=== PATIENT | male | born 1960 | race Caucasian/White ===

== ENCOUNTER 2016-09-13 15:47 | Inpatient (IN) | payer SELFPAY ==
[~2016-09-13] VITALS: Ht 165.1 cm; Wt 75.5 kg
--- NOTE | ~2016-09-13 | EC ---
PATIENT:MEAGAN HURTADO DATE OF SERVICE: 09/13/16 SEX: M MEDICAL RECORD: [id number] DATE OF : 56 LOCATION:[facility] AGE OF PATIENT: 56 ADMISSION DATE: 09/13/16 REFERRING PHYSICIAN: INTERPRETING PHYSICIAN: KARENA HIGH MD ECHOCARDIOGRAM REPORT ECHO CHARGES 4 ECHO COMPLETE CLINICAL DIAGNOSIS: FEVER OF UNKNOWN ORGIN ECHOCARDIOGRAPHIC MEASUREMENTS (adult normal given) AC root (d.<3.7cm) 3.6 cm LV Septum d (<1.2 cm> 1.1 cm Valve Excursion 1.8 cm LV Septum (systole) 1.4 cm Left Atria (s.<4.0cm> 3.7 cm LVPW d(<1.2cm) 1.4 cm RV (d.<2.3cm) 5.3 cm LVPW (sytole) 1.8 cm LV diastole(<5.6CM) 5.5 cm MV E-F(>70mm/sec) cm LV systole 4.1 cm LVOT Diameter 2.0 cm MV exc.(>10mm) 2.2 cm Est.ejection fraction (50-75%) % Pericardial Effusion N DOPPLER: LVIT cm/sec A 83.0 cm/sec E 59.0 cm/sec LA cm/sec RVSP 27 mmHg LVOT 88 cm/sec AOP1/2T 415 m/s Asc. Ao 152 cm/sec RVOT 75 cm/sec RA cm/sec PA 102 cm/sec AV Gradient Peak 9.20 mmHg AV Mean 4.71 mmHg AV Area 1.8 cm MV Gradient Peak 2.37 mmHg MV Mean 1.17 mmHg MV Area cm COMMENTS: Client Relations Specialist: Suhas LOZANO Residential Tech: 1 Dr. High TAPE# PACS DATE OF SERVICE: 09/17/2016 Echocardiogram FINDINGS: 1. Left ventricular chamber size is within normal limits. Left ventricular systolic function is normal. Overall ejection fraction estimated at 50%. 2. Left atrium is within normal limits at 3.7 cm, right atrium and right ventricular chamber sizes are mildly dilated. 3. Valvular structures have normal structure and motion. ECHOCARDIOGRAM REPORT [id number] MEAGAN HURTADO 4. Doppler interrogation reveals mild aortic insufficiency, mild mitral regurgitation, mild tricuspid regurgitation, no other valvular insufficiency or stenosis and pulmonary systolic pressure is normal estimated at 27 mmHg. 5. No evidence of pericardial effusion or left ventricular thrombus. 6. No evidence of vegetative endocarditis. TRANSINT:[id number] Voice Confirmation ID: [id number] DOCUMENT ID: [id number] KARENA HIGH MD CC: [id number] DICTATION DATE: 09/17/16 1248 JEWELRY FINISHER: 09/17/16 1737 ADM IN [facility] [address] [id number]
[2016-09-13 16:20] LABS: BASOPHILS 0.3 % (0-2); EOSINOPHILS 0 % (0-7); HEMATOCRIT 35.1 % (42.0-54.0); HEMOGLOBIN 11.9 g/dL (13.5-17.5); IMMATURE GRANULOCYTES 0.4 % (0-5); LYMPHOCYTES 20.4 % (15-50); MCH 27.9 pg (26.0-34.0); MCHC 33.9 g/dL (31.0-37.0); MCV 82.4 fL (80.0-100.0); MONOCYTES 11.7 % (2-11); NEUTROPHILS 67.2 % (40-80); PLATELET COUNT 207 10x3/uL (130-400); RBC 4.26 10x6/uL (4.20-6.10); RDW 18.5 % (11.5-14.5)
[2016-09-13 16:34] LABS: ALBUMIN 2.9 g/dL (3.4-5.0); ALKALINE PHOSPHATASE 107 U/L (46-116); ALT (SGPT) 84 U/L (10-68); AMYLASE - SERUM 68 U/L (25-115); BILIRUBIN - TOTAL 0.89 mg/dL (0.2-1.3); CALC OSMOLALITY 258 mosm/kg (275-300); CARBON DIOXIDE 26.5 mmol/L (21.0-32.0); CHLORIDE - SERUM 93 mmol/L (98-107); CREATININE - SERUM 0.9 mg/dL (0.6-1.3); GLUCOSE 116 mg/dL (74-106); LIPASE 260 U/L (73-393); POTASSIUM - SERUM 3.6 mmol/L (3.5-5.1); PROTEIN - SERUM 7.8 g/dL (6.4-8.2); SODIUM 129 mmol/L (136-145); UREA NITROGEN 9 mg/dL (7-18); eGFR NON AFRICAN AMERICAN > 90 mL/min (90-120)
[2016-09-13 18:12] LABS: APPEARANCE CLEAR (CLEAR); BILIRUBIN NEGATIVE (NEGATIVE); COLOR YELLOW (YELLOW); GLUCOSE NEGATIVE (NEGATIVE); KETONE NEGATIVE (NEGATIVE); LEUKOCYTE ESTERASE NEGATIVE (NEGATIVE); NITRITE NEGATIVE (NEGATIVE); PROTEIN TRACE mg/dL (NEGATIVE); UROBILINOGEN NORMAL (NORMAL)
[2016-09-13 21:26] VITALS: BMI 28.3
[2016-09-13] MEDS ORDERED: ZOFRAN ODT4 MG/UDTAB SL (21:38)
--- NOTE | 2016-09-13 23:36 | NUR ---
WOKE PATIENT UP TO GIVE HIM THE LIBRIUM THAT IS SCHEDULED. PATIENT IS VERY PLEASENT. NO SIGNS OF ALCOHOL WITHDRAW. PATIENT DENIES NEEDS AT THIS TIME. IS IN RECLINER. BOTH DENY NEEDS.
[2016-09-14] VITALS (14 sets, daily range): BP systolic 110–144; BP diastolic 62–714; Ht 165.1 cm; Wt 75.5 kg
--- NOTE | 2016-09-14 03:59 | NUR ---
PUT A COLD WET WASH CLOTH ON PATIENT'S FOREHEAD AND UNDER EACH ARM.
[2016-09-14 05:00] LABS: BASOPHILS 0.5 % (0-2); EOSINOPHILS 0 % (0-7); HEMATOCRIT 32.2 % (42.0-54.0); HEMOGLOBIN 10.8 g/dL (13.5-17.5); IMMATURE GRANULOCYTES 0.5 % (0-5); LYMPHOCYTES 18.4 % (15-50); MCH 27.8 pg (26.0-34.0); MCHC 33.5 g/dL (31.0-37.0); MEAN PLATELET VOLUME 9.7 fL (7.4-10.4); MONOCYTES 11.9 % (2-11); NEUTROPHILS 68.7 % (40-80); PLATELET COUNT 203 10x3/uL (130-400); RBC 3.88 10x6/uL (4.20-6.10); RDW 18.5 % (11.5-14.5); WBC 6.2 10x3/uL (4.8-10.8)
[2016-09-14 05:15] LABS: CALC OSMOLALITY 258 mosm/kg (275-300); CALCIUM 7.6 mg/dL (8.5-10.1); CARBON DIOXIDE 23.9 mmol/L (21.0-32.0); CHLORIDE - SERUM 97 mmol/L (98-107); GLUCOSE 118 mg/dL (74-106); POTASSIUM - SERUM 3.5 mmol/L (3.5-5.1); SODIUM 129 mmol/L (136-145); UREA NITROGEN 9 mg/dL (7-18); eGFR NON AFRICAN AMERICAN 81 mL/min (90-120)
--- NOTE | 2016-09-14 07:00 | NUR ---
PT SLEEPING WITH RESPIRATIONS EVEN AND NON LABORED. IV PATENT AND AT BEDSIDE. CALL LIGHT IN REACH, WILL CONTINUE WITH PLAN OF CARE.
--- NOTE | 2016-09-14 07:45 | NUR ---
PT ASSESSMENT COMPLETE AROUSES TO VERBAL STIMULI. HAS ORAL TEMP OF 102.7 PLACED COOL COMPRESS TO UNDER ARMS AND NECK WELL HEAD. WILL GIVE TYLENOL PER ORDER
--- NOTE | 2016-09-14 08:27 | NUR ---
Patient Name: MEAGAN HURTADO Admission Status: ER Accout number: [id number] Admission Date: 09-13-2016 : 1960 Admission Diagnosis: Attending: AZEB Current LOS: 1 Anticipated DC Date: 09-20-2016 Planned Disposition: Home Primary Insurance: UNINSURED DISCOUNT PLAN Discharge Planning Comments: CM MET WITH PATIENTS (DIANA) REGARDING D/C NEEDS AND PLANS. STATED SHE WILL DRIVE HIM HOME AT DISCHARGE AND THERE ARE NO STEPS OR STAIRS AT THEIR HOME. PATIENT IS INDEPENDENT WITH HIS CARE AND HAS NO DME AT HOME. PATIENT HAS NO PCP AND USES [facility] [address] FOR HIS PHARMACY. PATIENTS STATED HE HAS NO INSURANCE AND BUSINESS OFFICE HAS BEEN NOTIFIED. HAS REQUESTED ADVANCE DIRECTIVE INFORMATION AND IT WAS GIVEN TO HER. CM WILL CONTINUE TO FOLLOW PATIENT WITH D/C NEEDS AND PLANS. PCP NONE [facility] [address] [phone] DIANA () [phone] Animal Control Specialist: Elodia David How many steps to enter\exit or inside your home? 0 0 * PCP NONE 0 * Pharmacy [facility] [address] 0 * Preadmission Environment Home with Family 0 * ADLs Independent 0 * Equipment None 0 * List name and contact numbers for known caregivers / representatives who currently or will assist patient after discharge: DIANA () [phone] 0 * Community resources currently utilized None 0 * Additional services required to return to the preadmission environment? Yes 0 * Can the patient safely return to the preadmission environment? Yes 0 * Has this patient been hospitalized within the prior 30 days at any hospital? No 0 Grand Total: 0
--- NOTE | 2016-09-14 13:31 | NUR ---
PT HAS BEEN SEE TODAY BY PRIMARY AND GI AND WILL HAVE EGD TODAY HOWEVER PT UP TO TOILET WITH BM LOOSE STOOL WITH SALOME BLOOD NOTED. TEMP STILL ELEVATED AFTER COMPRESS AND TYLENOL. AT SIDE CALL PLACED TO DR PATINO AND HIS RECCOMMENDATION WAS TO TRANSFER TO ICU SPOKE WITH RESIDENTIAL DOOR INSTALLER AND ORDER RECIEVED TO TRANSFER TO UNIT.
--- NOTE | 2016-09-14 14:18 | NUR ---
REPORT CALLED TO REY IN ICU FOR ROOM 2308 PT TEMP CURRENTLY 103.3 PACKED WITH ICE PACKS TO UNDER ARMS AND GROIN.
--- NOTE | 2016-09-14 14:45 | NUR ---
1445-PT REC'D TO ICU, ALL CARDIAC MONITORING EQUIPMENT ATTACHED. TEMP 102.9, HR 123, SPO2 95% ON RA, BP 152/79.
--- NOTE | 2016-09-14 14:47 | NUR ---
AT , CONCENTS FOR EGD SIGNED.
--- NOTE | 2016-09-14 15:25 | NUR ---
PT [id number], RIGID AND PAINFUL ABD REPORTED TO DR JOSEPH. GI LAB TEAM HERE AWAITING DR JOSEPH FOR EGD.
--- NOTE | 2016-09-14 16:20 | NUR ---
egd complete, pt awakens easily, VOICE HERE AND SPOKE TO AT BS. BAE CATH PLACED ORDERED, URINE CULTURE COLLECTED AND SENT TO LAB. PT HAD SM AMT LIQUID BROWN STOOL, NO BLEEDING NOTED. CLEANED AND LINENS CHANGED.
[2016-09-14 16:27] LABS: ALBUMIN 2.5 g/dL (3.4-5.0); ALKALINE PHOSPHATASE 92 U/L (46-116); ALT (SGPT) 63 U/L (10-68); CALC OSMOLALITY 257 mosm/kg (275-300); CALCIUM 7.4 mg/dL (8.5-10.1); CARBON DIOXIDE 24.7 mmol/L (21.0-32.0); CHLORIDE - SERUM 95 mmol/L (98-107); CREATININE - SERUM 0.9 mg/dL (0.6-1.3); GLUCOSE 116 mg/dL (74-106); POTASSIUM - SERUM 3.4 mmol/L (3.5-5.1); PROTEIN - SERUM 6.6 g/dL (6.4-8.2); SODIUM 129 mmol/L (136-145); UREA NITROGEN 8 mg/dL (7-18); eGFR NON AFRICAN AMERICAN > 90 mL/min (90-120)
[2016-09-14 16:43] LABS: MAGNESIUM - SERUM 1.6 mg/dL (1.8-2.4); PHOSPHOROUS 2.5 mg/dL (2.5-4.9)
[2016-09-14 16:48] LABS: BASOPHILS 1.5 % (0-2); EOSINOPHILS 0.2 % (0-7); HEMATOCRIT 32.7 % (42.0-54.0); HEMOGLOBIN 10.5 g/dL (13.5-17.5); IMMATURE GRANULOCYTES 0.3 % (0-5); LYMPHOCYTES 10.2 % (15-50); MCH 27.4 pg (26.0-34.0); MCHC 32.1 g/dL (31.0-37.0); MEAN PLATELET VOLUME 9.7 fL (7.4-10.4); MONOCYTES 9.5 % (2-11); NEUTROPHILS 78.3 % (40-80); RBC 3.83 10x6/uL (4.20-6.10); RDW 19.3 % (11.5-14.5); WBC 6.5 10x3/uL (4.8-10.8)
[2016-09-14 16:52] LABS: MCV 85.4 fL (80.0-100.0); PLATELET COUNT 153 10x3/uL (130-400)
[2016-09-14 17:07] LABS: APPEARANCE CLEAR (CLEAR); BILIRUBIN NEGATIVE (NEGATIVE); COLOR YELLOW (YELLOW); GLUCOSE NEGATIVE (NEGATIVE); KETONE SMALL mg/dL (NEGATIVE); LEUKOCYTE ESTERASE NEGATIVE (NEGATIVE); NITRITE NEGATIVE (NEGATIVE); PROTEIN TRACE mg/dL (NEGATIVE); UROBILINOGEN NORMAL (NORMAL)
--- NOTE | 2016-09-14 17:49 | NUR ---
PT INSISTING ON GETTING OOB TO BSC. UNABLE TO REDIRECT. 2 PERSON ASSIST TO BSC. BLOOD NOTED IN BSC. UPON CLEANING PT'S BOTTOM NOTED A SM STEADY SQUIRTING STREAM OF BLOOD COMMING OUT. CALLED AND REPORTED TO DR JOSEPH. REC'D ORDERS.
--- NOTE | 2016-09-14 19:00 | NUR ---
REPORT RECEIVED. ASSESSMENT COMPLETE PER FLOW SHEET. LAYING IN BED, ALERT AND ORIENTED. S1S2 PRESENT. RADIAL PULSES AND POPLITEAL PULSES PALP. BS ACTIVE. FULL ROM IN UPPER AND LOWER EXTREMITIES. L WRIST PIV, PATENT, DRESSING ADHERED TO SKIN INFUSING PROTONIX AT 10 MLS/HR AND MVI BAG AT 125 MLS/HR. R FOREARM PIV, DRESSING CDI. DENIES PAIN AT THIS TIME. BED IN LOWEST POSITION. CALL LIGHT WITHIN REACH. SEE FLOW SHEET FOR COMPLETE ASSESMENT. WILL CONTINUE TO MONITOR.
--- NOTE | 2016-09-14 20:15 | NUR ---
ON BED SIDE COMMODE, 50 MLS OF DARK ORANGE URINE NOTED. ASSISTED PT BACK IN BED. DENIES NEEDS AT THIS TIME. CALL LIGHT WITHIN REACH. BED IN LOWEST POSITION. WILL CONTINUE TO MONITOR.
--- NOTE | 2016-09-14 20:15 | NUR ---
ASSISTED PT TO BED SIDE COMMODE, 50 MLS OF DARK RED LIQUID STOOLS NOTED. ASSISTED PT BACK IN BED. DENIES NEEDS AT THIS TIME. CALL LIGHT WITHIN REACH. BED IN LOWEST POSITION. WILL CONTINUE TO MONITOR.
--- NOTE | 2016-09-14 21:00 | NUR ---
AT BEDSIDE, QUESTIONS ANSWERED. UPDATE GIVEN. PT DENIES NEEDS AT THIS TIME. CALL LIGHT WITHIN REACH. WILL CONTINUE TO MONITOR.
--- NOTE | 2016-09-14 21:40 | NUR ---
PT OUT OF ROOM FOR CT PROCEDURE.
--- NOTE | 2016-09-14 22:00 | NUR ---
PT BACK IN ROOM FROM PROCEDURE. BED IN LOWEST POSITION. CALL LIGHT WTHIN REACH. DENIES NEEDS AT THIS TIME. WILL CONTINUE TO MONITOR.
--- NOTE | 2016-09-14 22:05 | NUR ---
ASSISSTED PT TO BED SIDE COMMODE, 30 MLS OF RECTAL BLEEDING NOTED. ASSISSTED PT BACK IN BED. H&H HAS BEEN DRAWN, WILL CHECK RESULTS.
[2016-09-14 22:12] LABS: HEMATOCRIT 31.5 % (42.0-54.0); HEMOGLOBIN 10.7 g/dL (13.5-17.5)
--- NOTE | 2016-09-14 23:00 | NUR ---
REASSESSMENT COMPLETE PER FLOW SHEET, SEE FOR DETAILS. DENIES NEEDS AT THIS TIME. CALL LIGHT WITHIN REACH. BED IN LOWEST POSITION. WILL CONTINUE TO MONITOR.
[2016-09-15] VITALS (24 sets, daily range): BP systolic 109–153; BP diastolic 63–98
--- NOTE | 2016-09-15 01:00 | NUR ---
LAYING IN BED RESTING, DENIES NEEDS AT THIS TIME. CALL LIGHT WITHIN REACH. BED IN LOWEST POSITION. WILL CONTINUE TO MONITOR.
--- NOTE | 2016-09-15 01:20 | NUR ---
ASSISTED TO BED SIDE COMMODE, 400 MLS OF LIQUID GREEN DIARRHEA NOTED. ASSISTED BACK IN BED. DENIES NEEDS AT THIS TIME. CALL LIGHT WITHIN REACH. BED IN LOWEST POSITION. WILL CONTINUE TO MONITOR.
--- NOTE | 2016-09-15 02:20 | NUR ---
ASSISTED TO BEDSIDE COMMODE. 325 MLS OF LIQUID/YELLOW STOOL NOTED. ASSISTED BACK IN BED. DENIES FURTHER NEEDS AT THIS TIME. CALL LIGHT WITHIN REACH. BED IN LOWEST POSITION. WILL CONTINUE TO MONITOR.
--- NOTE | 2016-09-15 03:00 | NUR ---
REASSESSMENT COMPLETE PER FLOW SHEET, SEE FOR DETAILS. DENIES NEEDS AT THIS TIME. CALL LIGHT WITHIN REACH. BED IN LOWEST POSITION. WILL CONTINUE TO MONITOR.
[2016-09-15 04:11] LABS: BASOPHILS 0.4 % (0-2); EOSINOPHILS 0 % (0-7); HEMOGLOBIN 10.2 g/dL (13.5-17.5); IMMATURE GRANULOCYTES 0.4 % (0-5); LYMPHOCYTES 22.1 % (15-50); MCH 27.6 pg (26.0-34.0); MEAN PLATELET VOLUME 9.9 fL (7.4-10.4); MONOCYTES 9.9 % (2-11); NEUTROPHILS 67.2 % (40-80); PLATELET COUNT 151 10x3/uL (130-400); RDW 18.6 % (11.5-14.5); WBC 5.4 10x3/uL (4.8-10.8)
[2016-09-15 04:18] LABS: MCV 81.1 fL (80.0-100.0)
[2016-09-15 04:28] LABS: ALBUMIN 2.3 g/dL (3.4-5.0); ALKALINE PHOSPHATASE 83 U/L (46-116); ALT (SGPT) 59 U/L (10-68); CALC OSMOLALITY 260 mosm/kg (275-300); CALCIUM 7.4 mg/dL (8.5-10.1); CARBON DIOXIDE 22.6 mmol/L (21.0-32.0); CHLORIDE - SERUM 96 mmol/L (98-107); GLUCOSE 111 mg/dL (74-106); PROTEIN - SERUM 6.6 g/dL (6.4-8.2); SODIUM 130 mmol/L (136-145); UREA NITROGEN 9 mg/dL (7-18); eGFR NON AFRICAN AMERICAN 81 mL/min (90-120)
[2016-09-15 04:36] LABS: POTASSIUM - SERUM 2.8 mmol/L (3.5-5.1)
--- NOTE | 2016-09-15 05:00 | NUR ---
LAYING IN BED RESTING. VSS. BED IN LOWEST POSITION. DENIES NEEDS AT THIS TIME. WILL CONTINUE TO MONITOR.
--- NOTE | 2016-09-15 06:00 | NUR ---
AT BEDSIDE. UPDATE GIVEN. QUESTIONS ANSWERED.
--- NOTE | 2016-09-15 06:15 | NUR ---
ASSISTED TO BED SIDE COMMODE. 350 MLS OF DARK GREEN LIQUID STOOLS. ASSISTED PT BACK TO BED. DENIES NEEDS AT THIS TIME. BED IN LOWEST POSITION.
--- NOTE | 2016-09-15 07:30 | NUR ---
PT OUT BED ON BEDSIDE COMODE. DID NOT CALL FOR HELP. INSTRUCTED PT TO CALL FOR HELP WHEN NEEDING TO USE BEDSIDE COMODE. HE SAID "WHEN I HAVE TO I HAVE TO GO". BED ALARM TURNED ON. PT IS SCHEDULED FOR A COLONOSCOPY LATER TODAY. BOWEL MOVEMENT LIQUID, YELLOW IN COLOR. PT DRINKING GOLYTELY TO PREP BOWELS FOR COLONOSCOPY. NO BLEEDING NOTED AT THIS TIME. O2 SAT 95% ON RA. BP 120/70 MAP 89 OR 95. HE IS ALERT AND ORIENTED. TEMPERATURE OF 98.7 ORALLY. REPORTS NO PAIN AT THIS TIME. ASSISTED BACK IN BED. FALL RISK BAND AND ALLERGY BAND APPLIED. NON SKID SOCKS PROVIDED. SIDE RAILS UP X 2. BED IN LOW POSITION. WILL CONTINUE TO MONITOR PT.
--- NOTE | 2016-09-15 08:25 | NUR ---
STOPPED GOLYTELY. PT NPO FOR COLONOSCOPY PROCEDURE.
--- NOTE | 2016-09-15 09:09 | NUR ---
HAS HAD 2 MORE BOWEL MOVEMENTS OF YELLOW LIQUID STOOL. PT GETS UP OUT OF BED WITHOUT CALLING FOR HELP. BED ALARM ON. IN ROOM AT THIS TIME. WILL CONTINUE TO MONITOR.
--- NOTE | 2016-09-15 10:09 | NUR ---
PT SLEEPING ON HIS BACK. SIDE RAILS UP X 2. BED IN LOW POSITION. WILL CONTINUE TO MONITOR.
[2016-09-15 10:50] LABS: HEMATOCRIT 32.5 % (42.0-54.0); HEMOGLOBIN 11.1 g/dL (13.5-17.5)
--- NOTE | 2016-09-15 11:01 | NUR ---
ASSISTED TO BEDSIDE COMODE. YELLOW LIQUID STOOL NOTED. COLOSCOPY PROCEDURE STARTED AT THIS TIME. NOTIFIED THAT PROCEDURE WAS BEING DONE EARLIER THAN PLANNED.
--- NOTE | 2016-09-15 11:27 | NUR ---
COLONOSCOPY COMPLETED. PT SLEEPING ON LEFT SIDE. BED IN LOW POSITION. CALL LIGHT IN REACH.
--- NOTE | 2016-09-15 11:41 | NUR ---
ATTEMPTED TO GET POLYP WITH SNARE WAS LOSSED SO DID HOT BX.
--- NOTE | 2016-09-15 11:43 | NUR ---
DR. PATINO SPEEKXUAN WITH ABOUT COLONOSCOPY FINDINGS.
[2016-09-15 13:11] LABS: ERYTHROCYTE SEDIMENTATION RATE 36 mm/hr (0-20)
--- NOTE | 2016-09-15 13:30 | NUR ---
PT GOT UP TO BEDSIDE COMODE. YELLOW LIQUID STOOL NOTED. ASSISTED PT BACK INTO BED. RESTING ON RIGHT SIDE. SIDE RAILS UP X 2. WILL CONTINUE TO MONITOR.
--- NOTE | 2016-09-15 15:30 | NUR ---
PT UP TO THE BEDSIDE COMODE. LIQUID STOOL NOTED YELLOW WITH BROWN COLOR NOTED. NO BLEEDING NOTED AT THIS TIME. TEMPERATURE 100.8. BLANKET REMOVED AND TOP SHEET PROVIDED TO HELP REDUCE FEVER. PT WAS SHAKING. STATES THAT THIS HAS HAPPENED TO HIM AT HOME. THAT THE SHAKINNES LAST ABOUT 30 TO 45 MINUTES. ASKED WHEN HIS LAST CONSUMPTION OF ALCOHOL WAS. STATES THAT IT WAS ON TUESDAY. HE SAID HE HAD 2 BEERS. WILL CONTINUE TO MONITOR.
--- NOTE | 2016-09-15 16:51 | NUR ---
PT SLEEPING ON HIS LEFT SIDE. EASY TO WAKE. TEMPERATURE 99.0. IT DECREASED FROM 100.8.
--- NOTE | 2016-09-15 17:01 | NUR ---
ASSISTED PT TO BEDSIDE COMODE. YELLOW WITH BROWN LIQUID STOOL NOTED. SHAKING A LITTLE LESS THAN BEFORE. DINNER TRAY IN ROOM. PT ATTEMPTING TO EAT.
[2016-09-15 17:04] LABS: HEMATOCRIT 32.8 % (42.0-54.0); HEMOGLOBIN 11.1 g/dL (13.5-17.5)
--- NOTE | 2016-09-15 17:43 | NUR ---
POTASSIUM 3.5. WILL START POTASSIUM RIDERS PER ELECTROLYTE PROTOCOL.
--- NOTE | 2016-09-15 18:01 | NUR ---
HAD ANOTHER BM YELLOW LIQUID STOOL. PT DID NOT WAIT FOR HELP. HR STAYING AT 120. PT INCREASING. LAST BP WAS 151/80. WILL CONINUE TO MONITOR.
--- NOTE | 2016-09-15 18:25 | NUR ---
IN THE ROOM. UPDATED HIM ON PATIENT'S CONDITION.
--- NOTE | 2016-09-15 19:10 | NUR ---
SHIFT ASSESSMENT COMPLETE. PT LYING IN BED SHAKING AND STATING THAT HE IS COLD. TEMP 101.5. SLIGHT FEVER. WILL ADMIN TYLENOL VIA ORDERS FOR TEMP OVER 101. HR 124, SINUS TACH. BP 130/95. PT UP WITH ASSIST TO BSC. 20 ML OF GREEN/YELLOW WATERY STOOL. CLEAR LUNG SOUNDS THROUGHOUT ALL LOBES. ACTIVE BS IN ALL QUADS. ABD TENDER TO TOUCH. RADIAL AND PEDAL PULSES PALP. SKIN WNL THROUGHOUT WHOLE BODY. REFILLED WATER PER REQUEST. PT ROLLED OVER AND SLEEPING AT THIS TIME. PT ABLE TO SPEAK BROKEN UZBEK. CALL LIGHT IN REACH. BED IN LOWEST POSITION. WILL CONT TO MONITOR.
--- NOTE | 2016-09-15 21:30 | NUR ---
PT FAMILY AT BEDSIDE. PT ON BSC. ANSWERED FAMILY'S QUESTIONS AND CONCERNS. PT IS IN GOOD SPIRITS AND BACK IN THE BED AT THIS TIME. CALL LIGHT IN REACH. DOOR OPEN. PT IN SIGHT OF THE NURSE'S STATION.
[2016-09-15 22:49] LABS: HEMATOCRIT 30.7 % (42.0-54.0); HEMOGLOBIN 10.6 g/dL (13.5-17.5)
--- NOTE | 2016-09-15 23:30 | NUR ---
REASSESSMENT COMPLETE. PT ON BSC. EMPTIED 900 CC OUT OF BAE CATH. 50 CC WATERY GREEN STOOL. PT STATES THAT HE IS IN NO PAIN AT THE TIME. BACK IN BED WITH JUST A SHEET OVER HIM. TEMP DECREASED TO 99.8. WILL CONT TO MONITOR TEMP. PT DENIES ANY REQUEST AT THIS TIME. WILL CONT WITH POC.
[2016-09-16] VITALS (24 sets, daily range): BP systolic 82–155; BP diastolic 51–96
--- NOTE | 2016-09-16 01:25 | NUR ---
PT RESTING PEACEFULLY AT THIS TIME. NO CHANGES NOTED. NO S/S OF ACUTE DISTRESS. VSS. WILL CONT WITH POC.
--- NOTE | 2016-09-16 03:30 | NUR ---
REASSESSMENT COMPLETE. PT ON BSC. GREEN/YELLOW WATERY REMAINS IN BASIN. PT BACK IN BED WITH NO S/S OF DISTRESS AT THIS TIME. REFILLED WATER PER REQUEST. NO FURTHER NEEDS AT THIS TIME. WILL CONT WITH POC.
[2016-09-16 04:20] LABS: BASOPHILS 0.2 % (0-2); EOSINOPHILS 0 % (0-7); HEMOGLOBIN 10.7 g/dL (13.5-17.5); IMMATURE GRANULOCYTES 0.8 % (0-5); LYMPHOCYTES 15.1 % (15-50); MCH 27.7 pg (26.0-34.0); MCHC 34.5 g/dL (31.0-37.0); MCV 80.3 fL (80.0-100.0); MEAN PLATELET VOLUME 10.5 fL (7.4-10.4); MONOCYTES 3.3 % (2-11); NEUTROPHILS 80.6 % (40-80); RBC 3.86 10x6/uL (4.20-6.10); RDW 18.5 % (11.5-14.5)
[2016-09-16 04:28] LABS: PLATELET COUNT 87 10x3/uL (130-400)
[2016-09-16 04:44] LABS: PLATELET ESTIMATE DECREASED
[2016-09-16 05:02] LABS: ALBUMIN 2.3 g/dL (3.4-5.0); BILIRUBIN - TOTAL 0.6 mg/dL (0.2-1.3); CALCIUM 7.2 mg/dL (8.5-10.1); CREATININE - SERUM 1.2 mg/dL (0.6-1.3); PROTEIN - SERUM 6.7 g/dL (6.4-8.2)
[2016-09-16 05:13] LABS: ANION GAP 15.9 mmol/L (8-16); POTASSIUM - SERUM 2.9 mmol/L (3.5-5.1)
--- NOTE | 2016-09-16 05:30 | NUR ---
PT AT BS. UPON RISING HE GOT WEAK, SO I INSTRUCTED HIM TO SIT BACK ON THE BED UNTIL HE REGAINS HIS STRENGTH. HIS SKIN IS WARM TO TOUCH AND HE STATES THAT HE IS NOT FEELING TOO MUCH BETTER AT THIS TIME. 50 CC OF GREEN/YELLOW WATERY STOOL COLLECTED IN BASIN. PT LYING BACK DOWN AND STATES THAT HE WANTS TO SLEEP AT THIS TIME. BED IN LOWEST POSITION. WILL CONT WITH POC
--- NOTE | 2016-09-16 07:35 | NUR ---
IN ROOM FEEDING PT. PT ASPIRATED SOME OF THE JELLO. HOB RAISED. PT COUGHED TO CLEAR HIS THROAT. SUCTION PROVIDED TO HELP CLEAR ANY JELLO FROM HIS MOUTH. WILL CONTINUE TO MONITOR. HR IS IN 120S.
--- NOTE | 2016-09-16 08:37 | NUR ---
PT TEMPERATURE AT 0700 WAS 100.4. TEMPERATURE AT THIS TIME HAS INCREASED TO 103.3. WILL GIVE PRN TYLENOL FOR FEVER.
--- NOTE | 2016-09-16 08:48 | NUR ---
NUTRITION MONITORING & EVAL CHART REVIEWED. PT TOLERATING CLEAR LIQUID DIET PER NURSING. WILL MONITOR DIET ADVANCEMENT, PO INTAKE. RD FOLLOWING
--- NOTE | 2016-09-16 08:50 | NUR ---
500MG TYLENOL GIVEN FOR FEVER OF 103.3. WILL CONTINUE TO MONITOR.
--- NOTE | 2016-09-16 09:29 | NUR ---
PT UP ON THE BEDSIDE COMODE. HE HAS HAD 4 BM THIS MORNING. LIQUID YELLOW STOOL. PT DOES NOT CALL FOR HELP OUT OF BED. BED ALARM ON. BP DECREASED TO 90/59 MAP 68 WHILE HE WAS ON THE BEDSIDE. ONCE BACK IN THE BED RETOOK BP 101/61 MAP 75. HEART RATE 128. IT HAS BEEN STAYING IN THE 120S THIS MORNING. WILL CONTINUE TO MONITOR.
--- NOTE | 2016-09-16 09:47 | NUR ---
PAGED DR. GAINES TO NOTIFY OF RECENT DROP IN BP. WAITING MIXER PIGMENT BACK.
--- NOTE | 2016-09-16 09:51 | NUR ---
SPOKE WITH DR. GAINES ABOUT BP BEING 93/61. I INCREASED NS RATE FROM 25 TO 150ML/HR. SHE WANTS TO SEE IF THE FLUIDS HELP. WILL CONTINUE TO MONITOR BP.
[2016-09-16 10:27] LABS: HEMATOCRIT 28.7 % (42.0-54.0); HEMOGLOBIN 9.9 g/dL (13.5-17.5)
--- NOTE | 2016-09-16 11:05 | NUR ---
PT SLEEPING ON HIS BACK. TEMPERATURE STILL 102.1. PLACED A COLD, WET WASH CLOTH ON FOREHEAD. ICE BAGS UNDER ARMS. WILL CONTINUE TO MONITOR.
--- NOTE | 2016-09-16 11:13 | NUR ---
INCREASED BANANA BAG RATE FROM 125ML/HR TO 200ML/HR PER DR. ARZATE'S ORDER. ONCE IT IS FINISHED NS WILL BE SET TO 150ML/HR.
[2016-09-16 11:18] LABS: T4 THYROXIN - FREE 1.54 ng/dL (0.76-1.46); THYROID STIMULATING HORMONE 0.49 uIU/mL (0.36-3.74)
[2016-09-16 11:47] LABS: INR 1.5 (0.85-1.17)
--- NOTE | 2016-09-16 11:57 | NUR ---
TEMPERATURE REASSESSED. 101.2 AXILLARY. ICE BAGS UNDER ARMS. WILL CONTINUE TO MONITOR. BP 125/75 MAP 86 NM 113.
--- NOTE | 2016-09-16 12:18 | NUR ---
PT SCHEDULED FOR LUMBAR PUNCTURE. NEEDS TO BE NPO. HAD BM LIQUID YELLOW/BROWN STOOL NOTED. CLEAN PADS PROVIDED. ASSISTED BACK IN BED.
--- NOTE | 2016-09-16 13:25 | NUR ---
TEMPERATURE SLOWLY DECREASING. 100.2 AT THIS TIME.
--- NOTE | 2016-09-16 13:41 | NUR ---
PT GOT UP TO BEDSIDE COMODE. YELLOW LIQUID STOOL NOTED. BACK IN BED RESTING.
--- NOTE | 2016-09-16 14:11 | NUR ---
PT SLEEPING ON LEFT SIDE. SHAKING NOTED. REMOVED ICE BAGS FOR NOW.
[2016-09-16 16:55] LABS: HEMATOCRIT 30.2 % (42.0-54.0); HEMOGLOBIN 10.5 g/dL (13.5-17.5)
--- NOTE | 2016-09-16 18:30 | NUR ---
PT UP TO BEDSIDE COMODE. BM LIQUID YELLOW STOOL NOTED. SEEM MORE UNSTEADY. IN ROOM. TEMPERATURE 100.1. CONTINUE TO KEEP COVERS OFF TO HELP REDUCE FEVER.
--- NOTE | 2016-09-16 19:30 | NUR ---
SHIFT ASSESSMENT COMPLETE. PT TEMP 102.6. TYLENOL ADMINISTERED PER ORDERS. PT IS ON BSC AT THIS TIME. GREEN/YELLOW WATERY STOOL NOTED. WHEN GETTING UP FROM BED AND BSC HE SEEMS VERY WEAK. ASSISTED PT BACK TO THE BED AND INSTRUCTED HIM THAT HE IS NOT TO GET OUT OF BED WITHOUT ASSISTANCE. HE STATED THAT HE UNDERSTOOD. BED ALARM ON. S1S2 AUDIBLE. HR 120 SINUS TACH. PT ON ROOM AIR, CLEAR LUNG SOUNDS THROUGHOUT ALL LOBES. BS ACTIVE X4. RADIAL AND PEDAL PULSES PALP. SHEET COVERING PT. FAN ON AT BEDSIDE. PT STATES THAT HE UNDERSTANDS WHY HE HAS THE FAN ON AT THIS TIME AND THAT IT IS TO HELP WITH HIS FEVER. COMPLETE LINEN CHANGE. CALL LIGHT IN REACH. DOOR OPEN. WILL CONT TO MONITOR.
--- NOTE | 2016-09-16 21:30 | NUR ---
FAMILY AT BEDSIDE. PT ON BSC. UPDATED FAMILY ON HIS CONDITION AND THEY EXPLAINED IN [place] WHY THE FAN WAS ON AND WHY HE HAD TO HAVE IT. HE STATES THAT HE UNDERSTANDS. TEMP DOWN TO 99.1 AT THIS TIME. PT BACK IN BED. BED IN LOWEST POSITION. BED ALARM ON, DOOR OPEN. WILL CONT TO MONITOR.
--- NOTE | 2016-09-16 23:30 | NUR ---
ASSISTED PT TO BSC. 50 CC OF GREEN/YELLOW STOOL COLLECTED. NO BLOOD NOTED AT THIS TIME. REASSESSMENT COMPLETE. TEMP 99.1 PT STATES THAT HE WANTS TO LEAVE HIS FAN ON. S1S2 AUDIBLE, HR 107 SINUS TACH VIA TELEMETRY. BP DROPS UPON STANDING. PT LYING BACK DOWN IN BED AT THIS TIME. BP IS WNL. BED ALARM ON AND HIS DOOR IS OPEN. PT DENIES ANY NEEDS AT THIS TIME. WILL CONT WITH POC.
[2016-09-16 23:39] LABS: HEMATOCRIT 29.3 % (42.0-54.0)
[2016-09-17] VITALS (23 sets, daily range): BP systolic 79–117; BP diastolic 54–78
--- NOTE | 2016-09-17 03:30 | NUR ---
REASSESSMENT COMPLETE. NO CHANGES NOTED AT THIS TIME. HR 99, NORMAL SINUS RHYTHM. BP WNL. SLIGHT INCREASE IN TEMP FROM 99.1 TO 100.9. REMOVED BLANKET. PT UP TO USE BSC AT THIS TIME. GREEN/YELLOW STOOL WITH NO BLOOD NOTED. DOOR OPEN. WILL CONT WITH POC.
[2016-09-17 04:47] LABS: BASOPHILS 1.9 % (0-2); EOSINOPHILS 0 % (0-7); HEMOGLOBIN 10.5 g/dL (13.5-17.5); IMMATURE GRANULOCYTES 0.4 % (0-5); LYMPHOCYTES 39.3 % (15-50); MCH 27.3 pg (26.0-34.0); MCHC 33.9 g/dL (31.0-37.0); MCV 80.5 fL (80.0-100.0); MEAN PLATELET VOLUME 10.7 fL (7.4-10.4); MONOCYTES 13.5 % (2-11); NEUTROPHILS 44.9 % (40-80); PLATELET COUNT 70 10x3/uL (130-400); RBC 3.85 10x6/uL (4.20-6.10); RDW 18.5 % (11.5-14.5); WBC 5.2 10x3/uL (4.8-10.8)
[2016-09-17 05:00] LABS: ALBUMIN 2.1 g/dL (3.4-5.0); ANION GAP 14.8 mmol/L (8-16); BILIRUBIN - TOTAL 0.5 mg/dL (0.2-1.3); CALCIUM 7.2 mg/dL (8.5-10.1); CARBON DIOXIDE 18.4 mmol/L (21.0-32.0); CREATININE - SERUM 1.2 mg/dL (0.6-1.3); POTASSIUM - SERUM 3.2 mmol/L (3.5-5.1); PROTEIN - SERUM 6.3 g/dL (6.4-8.2)
--- NOTE | 2016-09-17 05:30 | NUR ---
IV TUBING CHANGED AND LABELED. SWAB CAPS IN USE. PT RESTING PEACEFULLY AT THIS TIME. HE DENIES ANY NEEDS. VSS. WILL CONT WITH POC.
--- NOTE | 2016-09-17 07:00 | NUR ---
REPORT RECIEVED FROM PEANUT BLANCHER NURSE. PT RESTING IN BED QUIETLY. NO S/SX OF ACUTE DISTRESS NOTED AT THIS TIME. FULL ASSESSMENT COMPLETE PER FLOWSHEET. CALL LIGHT IN REACH. BED IN LOW POSITION. ALARM ON. WILL CONT TO ASSESS FOR CHANGES THROUGHOUT SHIFT.
--- NOTE | 2016-09-17 07:05 | NUR ---
REDRESSED IV ON R ARM. PT PULLED AT TUBING AND I NOTICED A SMALL AMOUNT OF BLEEDING FROM THE SITE. IV IS PATENT AND THERE IS BLOOD RETURN. REDRESSED WITH TEGADERM AND TAPE.
[2016-09-17 07:27] LABS: INR 1.15 (0.85-1.17); PROTIME 14.6 SECONDS (11.6-15.0)
[2016-09-17 07:34] LABS: APTT 49.9 SECONDS (22.8-39.4)
[2016-09-17 08:18] LABS: HEPATITIS C ANTIBODY 0.2 (0.0-0.9)
--- NOTE | 2016-09-17 09:00 | NUR ---
AT BEDSIDE. UPDATE PROVIDED. DISCUSSED THAT PT WOULD BE GOING FOR LUMBAR PUNCTURE AT SOME TIME TODAY.
--- NOTE | 2016-09-17 10:00 | NUR ---
ASSISTED TO BSC. 500CC OF LOOSE GREEN STOOL NOTED. PT DENIES ABD PAIN AT THIS TIME. ASSISTED BACK TO BED. CALL LIGHT PLACED IN REACH.
[2016-09-17 12:15] LABS: ANA REFLEX - DIRECT Negative (Negative)
--- NOTE | 2016-09-17 12:30 | NUR ---
ACCOMPANIED PT FOR LP.
--- NOTE | 2016-09-17 14:15 | NUR ---
RETURNED FROM LP. CALL LIGHT PLACED IN REACH. HOB ELEVATED AT 45 DEGREES. PT DENIES H/A AT THIS TIME. LOW GRADE TEMP NOTED AT 99.4. FRESH ICE WATER AND JELLO PLACED ON BST. ATTACHED TO ICU MONITORS.
--- NOTE | 2016-09-17 16:00 | NUR ---
20G IV PLACED TO LEFT FA AND ALSO TO LEFT UPPER ARM. X1 STICK FOR BOTH. DRESSING PLACED AND DATED.
[2016-09-17 17:30] LABS: GLUCOSE - CSF 55 MG/DL (40-75); PROTEIN - CSF 77 MG/DL (12-60)
--- NOTE | 2016-09-17 18:00 | NUR ---
AT BEDSIDE. UPDATE PROVIDED.
[2016-09-17 18:09] LABS: APPEARANCE - CSF CLEAR; LYMPH - CSF 99 % (40-80); MONO - CSF 1 % (15-45)
[2016-09-17 18:10] LABS: RBC - CSF 5 cmm (0-0)
--- NOTE | 2016-09-17 19:00 | NUR ---
SHIFT ASSESSMENT COMPLETE, SEE FLOWSHEET FOR FINDINGS. DENIES NEED AT THIS TIME. VSS. WILL MONITOR.
--- NOTE | 2016-09-17 21:00 | NUR ---
NIGHT MEDS GIVEN WITHOUT PROBLEM. CURRENTLY REPLACING POTASSIUM PER ELECTROLYTE PROTOCOL.
--- NOTE | 2016-09-17 23:05 | NUR ---
REASSESSMENT COMPLETE. NO ACUTE CHANGES. DENIES NEED. VSS.
[2016-09-18] VITALS (24 sets, daily range): BP systolic 100–147; BP diastolic 56–96
--- NOTE | 2016-09-18 01:00 | NUR ---
ASSISSTED TO BSC. PASSED ABOUT 150CC OF YELLOW DIARRHEA. CLEANED INDEPENDENTLY AND ASSISSTED BACK TO BED.
--- NOTE | 2016-09-18 03:05 | NUR ---
REASSESSMENT COMPLETE, NO CHANGES. SEE FLOWSHEET. DENIES NEED, CL IN REACH.
[2016-09-18 04:10] LABS: BASOPHILS 1.3 % (0-2); EOSINOPHILS 0 % (0-7); HEMATOCRIT 30.1 % (42.0-54.0); HEMOGLOBIN 10.3 g/dL (13.5-17.5); IMMATURE GRANULOCYTES 0.4 % (0-5); LYMPHOCYTES 53.2 % (15-50); MCH 27.6 pg (26.0-34.0); MCHC 34.2 g/dL (31.0-37.0); MCV 80.7 fL (80.0-100.0); MONOCYTES 13.7 % (2-11); NEUTROPHILS 31.4 % (40-80); PLATELET COUNT 76 10x3/uL (130-400); RBC 3.73 10x6/uL (4.20-6.10); RDW 18.6 % (11.5-14.5); WBC 4.6 10x3/uL (4.8-10.8)
[2016-09-18 04:29] LABS: ALBUMIN 1.9 g/dL (3.4-5.0); ANION GAP 13.8 mmol/L (8-16); BILIRUBIN - TOTAL 0.43 mg/dL (0.2-1.3); CALCIUM 7.4 mg/dL (8.5-10.1); CARBON DIOXIDE 18.7 mmol/L (21.0-32.0); CREATININE - SERUM 1.1 mg/dL (0.6-1.3)
[2016-09-18 04:31] LABS: POTASSIUM - SERUM 3.5 mmol/L (3.5-5.1)
--- NOTE | 2016-09-18 05:00 | NUR ---
RESTING WITH EYES CLOSED, VSS, RR EVEN AND NONLABORED. CL IN REACH.
--- NOTE | 2016-09-18 06:30 | NUR ---
AT BEDSIDE, UPDATE GIVEN.
--- NOTE | 2016-09-18 07:00 | NUR ---
REC'D CARE OF PT. A&O X3. AT BEDSIDE TRANSLATING.
--- NOTE | 2016-09-18 07:15 | NUR ---
CAN SPEAK SOME BRAZILIAN.
--- NOTE | 2016-09-18 07:30 | NUR ---
ALLOWED BACK TO TRANSLATE. BREAKFAST TRAY SERVED.
--- NOTE | 2016-09-18 08:43 | NUR ---
UP TO BEDSIDE COMMODE WITH ASSISTANCE. HAD 100 CC LIQUID YELLOW STOOL. PERICARE PERFORMED AND BACK TO BED.
--- NOTE | 2016-09-18 09:00 | NUR ---
AT BEDSIDE. I AM USING HER FOR TRANSLATER.
--- NOTE | 2016-09-18 11:30 | NUR ---
BANANA BAG INFUSING INDEPENDENTLY AT LEFT AC. LEFT UPPER ARM WITH NS/IVPB AND PROTONIX GTT. LEFT HAND PIV=SL. STERILE CAPS IN PLACE. YUNIER CD&I.
--- NOTE | 2016-09-18 13:15 | NUR ---
RESTIGN WITH EYES CLOSED. VSS.
--- NOTE | 2016-09-18 15:03 | NUR ---
AT BEDSIDE. SHE DIDNT WANT TO WAKE HIM. SO SHE LEFT.VSS. I UPDATED HER.
--- NOTE | 2016-09-18 17:20 | NUR ---
K LEVEL 3.0. KCL 40 MEQ ORAL SOLUTION GIVEN.
--- NOTE | 2016-09-18 17:39 | NUR ---
COULDNT TAKE ORAL KCL. GIVING IV NOW.
--- NOTE | 2016-09-18 18:01 | NUR ---
AT BEDSIDE. UPDATED HER. QUESTIONS ANSWERED AND CONCERNS ADDRESED.
--- NOTE | 2016-09-18 19:00 | NUR ---
SHIFT ASSESSMENT COMPLETE, SEE ASSESSMENT FLOWSHEET. PATIENT A&O X4. DENIES NEED AT THIS TIME. VSS. WILL MONITOR.
--- NOTE | 2016-09-18 20:15 | NUR ---
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 TRANSFERRED TO BEDSIDE COMMODE WITH ASSISST. WAS INCONTINENT OF STOOL. LINENS AND GOWN CHANGED. HAD ABOUT 100CC OF LIQUID YELLOW STOOL. PERFORMED PERICARE INDEPENDENTLY, ASSISSTED BACK TO BED.
--- NOTE | 2016-09-18 20:35 | NUR ---
NIGHT MEDS GIVEN, PATIENT DENIES NEED. CL IN REACH.
--- NOTE | 2016-09-18 21:00 | NUR ---
HERE FOR VISITATION, BUT DID NOT WANT TO WAKE HIM. UPDATE GIVEN.
--- NOTE | 2016-09-18 23:00 | NUR ---
REASSESSMENT COMPLETE, NO CHANGES FROM PREVIOUS. DENIES NEED, CL IN REACH.
[2016-09-19] VITALS (24 sets, daily range): BP systolic 118–147; BP diastolic 55–98
--- NOTE | 2016-09-19 01:05 | NUR ---
RESTING WITH EYES CLOSED. VSS, RR EVEN AND NONLABORED. WILL MONITOR.
--- NOTE | 2016-09-19 03:05 | NUR ---
REASSESSMENT COMPLETE, SEE FLOWSHEET. VSS, DENIES NEED AT THIS TIME. CL IN REACH.
[2016-09-19 04:19] LABS: BASOPHILS 0.6 % (0-2); EOSINOPHILS 0.2 % (0-7); HEMATOCRIT 32.5 % (42.0-54.0); HEMOGLOBIN 11.1 g/dL (13.5-17.5); IMMATURE GRANULOCYTES 0.4 % (0-5); LYMPHOCYTES 51.3 % (15-50); MCH 27.3 pg (26.0-34.0); MCHC 34.2 g/dL (31.0-37.0); MONOCYTES 10.7 % (2-11); NEUTROPHILS 36.8 % (40-80); PLATELET COUNT 89 10x3/uL (130-400); RBC 4.06 10x6/uL (4.20-6.10); RDW 18.9 % (11.5-14.5); WBC 4.7 10x3/uL (4.8-10.8)
[2016-09-19 04:34] LABS: ALKALINE PHOSPHATASE 107 U/L (46-116); ALT (SGPT) 171 U/L (10-68); BILIRUBIN - TOTAL 0.44 mg/dL (0.2-1.3); CALC OSMOLALITY 276 mosm/kg (275-300); CALCIUM 7.5 mg/dL (8.5-10.1); CARBON DIOXIDE 21.3 mmol/L (21.0-32.0); CHLORIDE - SERUM 107 mmol/L (98-107); CREATININE - SERUM 0.9 mg/dL (0.6-1.3); GLUCOSE 127 mg/dL (74-106); PROTEIN - SERUM 6.2 g/dL (6.4-8.2); SODIUM 138 mmol/L (136-145); eGFR NON AFRICAN AMERICAN > 90 mL/min (90-120)
[2016-09-19 04:35] LABS: UREA NITROGEN 11 mg/dL (7-18)
--- NOTE | 2016-09-19 05:00 | NUR ---
RESTING WITH EYES CLOSED, RR EVEN NONLABORED. CL IN REACH.
--- NOTE | 2016-09-19 06:00 | NUR ---
AT BEDSIDE, UPDATE PROVIDED.
--- NOTE | 2016-09-19 07:26 | NUR ---
LYING IN BED AT THIS TIME. NO ACUTE DISTRESS NOTED. PT RESPIRATIONS AT STEADY AND UNLABORED RATE. AWAKENS EASILY WHEN SPOKEN TO. WILL CONTINUE PLAN OF CARE.
--- NOTE | 2016-09-19 09:22 | NUR ---
SPOKE WITH PTS AT THIS TIME WHO EXPRESSES CONCERNS WISHING TO SPEAK WITH PTS PHYSICIANS WHEN ROUNDING. UPDATE GIVEN TO PTS WELL WILL BE SURE PTS GETS TO SPEAK WITH PHYSICIANS UPON ROUNDING. NO ACUTE DISTRESS NOTED. WILL CONTINUE PLAN OF CARE.
--- NOTE | 2016-09-19 11:15 | NUR ---
DR PATINO IN PT ROOM SPEAKING WITH PT AND PTS AT THIS TIME. NO ACUTE DISTRESS NOTED. WILL CONTINUE PLAN OF CARE.
--- NOTE | 2016-09-19 13:33 | NUR ---
CONTINENT BOWEL MOVEMENT NOTED AT THIS TIME, LOOSE STOOL. NOTED MIN BLEEDING TO HEMMORROIDS LILI CARE WAS PROVIDED. NO ACUTE DISTRESS NOTED. WILL CONTINUE PLAN OF CARE.
--- NOTE | 2016-09-19 14:20 | NUR ---
IV TO LEFT FOREARM INFILTRATED THEREFORE DC. NEW IV PLACED TO LEFT FOREARM, 20G X 1 ATTEMPT. FLUSHES WELL. NO ACUTE DISTRESS NOTED. WILL CONTINUE PLAN OF CARE.
--- NOTE | 2016-09-19 15:46 | NUR ---
PT RESTING AT THIS TIME. NO ACUTE DISTRESS NOTED. AWAKENS EASILY WHEN SPOKEN TO. ABLE TO STATE NEEDS. WILL CONTINUE PLAN OF CARE.
--- NOTE | 2016-09-19 17:05 | NUR ---
NO ACUTE DISTRESS NOTED. PT SITTING UP IN BED EATING SUPPER. WILL CONTINUE PLAN OF CARE.
--- NOTE | 2016-09-19 17:33 | NUR ---
DR PERKINS IN PTS ROOM SPEAKING WITH PTS AT THIS TIME. NO ACUTE DISTRESS NOTED. WILL CONTINUE PLAN OF CARE.
--- NOTE | 2016-09-19 19:15 | NUR ---
REPORT RECIEVED. ASSESSMENT COMPLETED. PT IS ALERT AND ORIENTATED X4. PT SPEAKS GE[place]GI[place] AND A LITTLE HARD TO COMUNICATE BUT UNDERSTANDS ENOUGHT [place] TO ANSWER YES AND NO QUESTIONS. PT VSS. PT ON ROOM AIR WITH CLEAR LUNG SOUNDS IN ALL LOBES. PT IS ON TELEMETRY AT A RATE OF 73 WITH A RHYTHM OF NORMAL SINUS. PT HAS PALP PULSES IN ALL EXTREMITIES. PT HAS NS RUNNING @125, AND PROTONIX RUNNING @10 ML/HR TO THE LT FORE ARM. PT HAS A BAE WITH ADAQUATE OUTPUT. PT HAS A DRESSING ON HIS BACK FROM A LUMBAR PUNCTURE THE DRESSING IS CDI. PT POSITIONED FOR COMFORT WILL CONTINUE TO MONITOR.
--- NOTE | 2016-09-19 21:00 | NUR ---
PT HAS FAMILY AT BEDSIDE. UPDATE GIVEN. PT POSITONED FOR COMFORT WILL CONTINUE TO MONITOR.
--- NOTE | 2016-09-19 23:00 | NUR ---
REASSESSMENT COMPLETED. NO ACUTE CHANGES AT THIS TIME. PT POSITIONED FOR COMFORT WILL CONTINUE TO MONITOR.
[2016-09-20] VITALS (15 sets, daily range): BP systolic 102–152; BP diastolic 70–97
--- NOTE | 2016-09-20 01:00 | NUR ---
PT ASLEEP DENIES ANY NEEDS. WILL CONTINUE TO MONITOR PT.
--- NOTE | 2016-09-20 03:00 | NUR ---
REASSESSMENT COMPLETED. NO ACUTE CHANGES AT THIS TIME. PT POSITIONED FOR COMFORT WILL CONTINUE TO MONITOR.
[2016-09-20 04:24] LABS: BASOPHILS 0.4 % (0-2); EOSINOPHILS 0.4 % (0-7); HEMATOCRIT 30.7 % (42.0-54.0); HEMOGLOBIN 10.6 g/dL (13.5-17.5); IMMATURE GRANULOCYTES 0.4 % (0-5); LYMPHOCYTES 47.3 % (15-50); MCH 27.5 pg (26.0-34.0); MCHC 34.5 g/dL (31.0-37.0); MCV 79.7 fL (80.0-100.0); MEAN PLATELET VOLUME 10.1 fL (7.4-10.4); MONOCYTES 14.4 % (2-11); NEUTROPHILS 37.1 % (40-80); RBC 3.85 10x6/uL (4.20-6.10); RDW 19.2 % (11.5-14.5); WBC 4.5 10x3/uL (4.8-10.8)
[2016-09-20 04:30] LABS: PLATELET COUNT 130 10x3/uL (130-400)
[2016-09-20 04:43] LABS: CALC OSMOLALITY 275 mosm/kg (275-300); CALCIUM 7.5 mg/dL (8.5-10.1); CARBON DIOXIDE 21.1 mmol/L (21.0-32.0); CHLORIDE - SERUM 108 mmol/L (98-107); CREATININE - SERUM 0.9 mg/dL (0.6-1.3); GLUCOSE 112 mg/dL (74-106); POTASSIUM - SERUM 3.3 mmol/L (3.5-5.1); SODIUM 139 mmol/L (136-145); eGFR NON AFRICAN AMERICAN > 90 mL/min (90-120)
[2016-09-20 04:46] LABS: UREA NITROGEN 5 mg/dL (7-18)
--- NOTE | 2016-09-20 05:01 | NUR ---
PT ASLEEP IN BED APPEARS TO DENY ANY NEEDS. WILL CONTINUE TO MONITOR PT.
--- NOTE | 2016-09-20 07:15 | NUR ---
REPORT RECIEVED FROM EXECUTIVE VICE PRESIDENT NURSE. PT RESTING IN BED QUIETLY. VSS AT THIS TIME. NO S/SX OF ACUTE DISTRESS NOTED AT THIS TIME. FULL ASSESSMENT COMPLETE PER FLOWSHEET. CALL LIGHT IN REACH. BED IN LOW POSITION. WILL CONT TO ASSESS.
--- NOTE | 2016-09-20 08:00 | NUR ---
ASSISSTED TO RECLINER WITH MODERATE ASSIST. UNSTEADY GAIT NOTED.
--- NOTE | 2016-09-20 08:40 | NUR ---
SPOKE WITH DR. WAITE IN REGARDS TO CONSULT.
--- NOTE | 2016-09-20 10:16 | NUR ---
NUTRITION MONITORING & EVAL CHART REVIEWED, PT UP IN CHAIR. CONTINUES CLEAR LIQUID DIET. RECOMMEND CONSIDER NUTRITION IF UNABLE TO ADVANCE DIET. RD FOLLOWING
--- NOTE | 2016-09-20 11:06 | NUR ---
09/20/2016 11:06 DCP: Discharge Planning Patient Name: MEAGAN HURTADO Encounter No: [id number] : 1960 Primary Insurance: UNINSURED DISCOUNT PLAN Anticipated DC Date: 09-20-2016 Planned Disposition: Home DCP follow-up note: Patient and family in agreement with discharge plan. No changes to plan. Case management will follow and assist as needed. My Reed
--- NOTE | 2016-09-20 12:00 | NUR ---
NO UISITORS AT THIS TIME.
--- NOTE | 2016-09-20 13:00 | NUR ---
WALKED WITH PT USING WALKER. MODERATE ASSIST REQUIRED. ASSISTED BACK TO BED PER PT. ATTACHED TO ICU MONITORS.
--- NOTE | 2016-09-20 14:35 | NUR ---
DR. WAITE AT BEDSIDE. UPDATE PROVIDED.
--- NOTE | 2016-09-20 16:30 | NUR ---
RECIEVED TO ROOM 2225 FROM ICU VIA WC. IV TO L FA PATENT. BANANA BAG INFUSING AT 125 CC/HR AND PROTONIX INFUSING AT 10 CC/HR VIA PUMP. CATALINO PATENT.
--- NOTE | 2016-09-20 16:30 | NUR ---
REPORT CALLED TO ZE PRAKASH. WILL TRANSFER PT VIA W/C.
--- NOTE | 2016-09-20 16:45 | NUR ---
PT TRANSFERED VIA W/C TO 2225. BELONGINGS TAKEN WITH PT.
[2016-09-21] VITALS: BP 138/77
[2016-09-21 04:00] VITALS: BP 159/85
[2016-09-21 05:51] LABS: ALBUMIN 2.1 g/dL (3.4-5.0); ALKALINE PHOSPHATASE 96 U/L (46-116); ALT (SGPT) 125 U/L (10-68); CALC OSMOLALITY 280 mosm/kg (275-300); CALCIUM 7.5 mg/dL (8.5-10.1); CARBON DIOXIDE 24.9 mmol/L (21.0-32.0); CHLORIDE - SERUM 107 mmol/L (98-107); CREATININE - SERUM 0.9 mg/dL (0.6-1.3); GLUCOSE 134 mg/dL (74-106); PROTEIN - SERUM 6.1 g/dL (6.4-8.2); SODIUM 141 mmol/L (136-145); UREA NITROGEN 6 mg/dL (7-18); eGFR NON AFRICAN AMERICAN > 90 mL/min (90-120)
[2016-09-21 05:55] LABS: POTASSIUM - SERUM 2.6 mmol/L (3.5-5.1)
--- NOTE | 2016-09-21 07:50 | NUR ---
ASSESSMENT COMPLETE. IV TO L FA PATENT. NS INFUSING AT 150 CC/HR AND PROTONIX AT 10 CC/HR VIA PUMP. BED ALARM IN USE. UNSTEADY GAIT.
--- NOTE | 2016-09-21 07:50 | NUR ---
HAD LOOSE STOOL. SPECIMEN MISSED CONTAINER. UNABLE TO COLLECT STOOL SPECIMEN AT THIS TIME.
[2016-09-21 09:05] VITALS: BP 131/87
[2016-09-21 10:19] LABS: BASOPHILS 0.6 % (0-2); EOSINOPHILS 0.4 % (0-7); HEMATOCRIT 30.7 % (42.0-54.0); HEMOGLOBIN 10.4 g/dL (13.5-17.5); IMMATURE GRANULOCYTES 0.6 % (0-5); LYMPHOCYTES 46.5 % (15-50); MCH 27.5 pg (26.0-34.0); MCHC 33.9 g/dL (31.0-37.0); MCV 81.2 fL (80.0-100.0); MEAN PLATELET VOLUME 9.8 fL (7.4-10.4); MONOCYTES 15.5 % (2-11); NEUTROPHILS 36.4 % (40-80); RBC 3.78 10x6/uL (4.20-6.10); WBC 4.7 10x3/uL (4.8-10.8)
[2016-09-21 10:24] LABS: PLATELET COUNT 160 10x3/uL (130-400)
--- NOTE | 2016-09-21 12:00 | NUR ---
NO CHANGES NOTED AT THIS TIME. SITTING UP ON THE SIDE OF THE BED. BED ALARM IN USE.
[2016-09-21 13:22] VITALS: BP 123/79
--- NOTE | 2016-09-21 13:22 | NUR ---
NUTRITION MONITORING & EVAL CHART REVIEWED, PT VISIT X2. ASSISTED WITH BREAKFAST AND LUNCH. PT WITH SLOWLY IMPROVING PO INTAKE. UNABLE TO [employer] FOOD PREFERENCES. RD FOLLOWING
[2016-09-21 16:13] LABS: IGGS - IGG INDEX CSF 0.6 (0.0-0.7); IGGS - IGG SYNTHESIS RATE CSF 14.4 mg/day (-9.9 TO +3.3)
[2016-09-21 17:36] VITALS: BP 121/76
--- NOTE | 2016-09-21 18:10 | NUR ---
RESTING QUIETLY IN BED. STOOL SPECIMEN COLLECTED AND SENT TO LAB.
--- NOTE | 2016-09-21 18:15 | NUR ---
BAE CATHETER DC'D. CATHETER TIP INTACT. FAMILY AT BEDSIDE.
--- NOTE | 2016-09-21 19:58 | NUR ---
PT RESTING IN BED AND DENIES NEEDS AT THIS TIME. ADMINISTERED MEDS PER ORDERS AND COMPLETED ASSESSMENT. BED IN LOWEST POSITION AND CALL LIGHT WITHIN REACH. ENCOURAGED THE PT TO CALL IF HE HAS NEEDS.
[2016-09-21 20:00] VITALS: BP 147/82
[2016-09-21 20:08] LABS: ACID FAST SMEAR Negative (()); AFB SPECIMEN PROCESSING Not Indicated (())
[2016-09-22] VITALS: BP 149/80
[2016-09-22 03:10] LABS: HSV 1 DNA (PCR) Negative (Negative); HSV 2 DNA (PCR) Negative (Negative)
[2016-09-22 03:10] LABS: RMSF IGM 0.53 index (0.00-0.89)
[2016-09-22 04:00] VITALS: BP 152/79
[2016-09-22 05:47] LABS: HEMATOCRIT 30.1 % (42.0-54.0); HEMOGLOBIN 10.3 g/dL (13.5-17.5); MCH 27.6 pg (26.0-34.0); MCHC 34.2 g/dL (31.0-37.0); MCV 80.7 fL (80.0-100.0); MEAN PLATELET VOLUME 9.7 fL (7.4-10.4); RBC 3.73 10x6/uL (4.20-6.10); RDW 18.9 % (11.5-14.5)
[2016-09-22 05:55] LABS: PLATELET COUNT 200 10x3/uL (130-400)
[2016-09-22 06:14] LABS: ALBUMIN 2.4 g/dL (3.4-5.0); ALKALINE PHOSPHATASE 95 U/L (46-116); ALT (SGPT) 118 U/L (10-68); BILIRUBIN - TOTAL 0.55 mg/dL (0.2-1.3); CALC OSMOLALITY 283 mosm/kg (275-300); CALCIUM 7.7 mg/dL (8.5-10.1); CARBON DIOXIDE 25.2 mmol/L (21.0-32.0); CHLORIDE - SERUM 108 mmol/L (98-107); GLUCOSE 114 mg/dL (74-106); MAGNESIUM - SERUM 1.8 mg/dL (1.8-2.4); PHOSPHOROUS 3.1 mg/dL (2.5-4.9); PROTEIN - SERUM 6.4 g/dL (6.4-8.2); SODIUM 143 mmol/L (136-145); UREA NITROGEN 6 mg/dL (7-18); eGFR NON AFRICAN AMERICAN 81 mL/min (90-120)
[2016-09-22 06:24] LABS: POTASSIUM - SERUM 2.7 mmol/L (3.5-5.1)
[2016-09-22 06:35] LABS: ANISOCYTOSIS OCC; EOSINOPHILS 2 % (0-7); HYPOCHROMASIA OCC; LYMPHOCYTES 52 % (15-50); MONOCYTES 4 % (2-11); NEUTROPHILS 42 % (40-80); PLATELET ESTIMATE NORMAL
[2016-09-22 07:27] LABS: F. TULARENSIS - IGG See below: (()); F. TULARENSIS - IGM Negative (())
--- NOTE | 2016-09-22 07:30 | NUR ---
RECIEVED PT DURING WALKING ROUNDS. PT RESTING IN BED WITH NO COMPLAINTS OF PAIN OR DISCOMFORT AT THIS TIME. ASSESSMENT DONE PER FLOWSHEET. BED IN LOW POSITION AND CALL LIGHT WITHIN REACH. WILL CONTINUE TO MONITOR.
[2016-09-22 08:00] VITALS: BP 126/81
[2016-09-22 10:17] LABS: HGE IGG TITER Negative (Neg:<1:64); HGE IGM TITER Negative (Neg:<1:20)
[2016-09-22] MEDS ORDERED: FLORAJEN3 CAPS460 MG PO (11:44)
[2016-09-22] MEDS ORDERED: ANUSOL-HC25 MG RC (11:45)
[2016-09-22] MEDS ORDERED: K-DUR20 MEQ PO (11:45)
[2016-09-22] MEDS ORDERED: LOMOTIL TABLET1 TAB PO (11:45)
[2016-09-22] MEDS ORDERED: CARAFATE1 G/10 ML PO (11:45)
[2016-09-22] MEDS ORDERED: FOLIC ACID1 MG PO (11:46)
[2016-09-22] MEDS ORDERED: VITAMIN B-1100 M1 PO (11:46)
[2016-09-22] MEDS ORDERED: VIBRAMYCIN 100100 MG PO (11:47)
[2016-09-22 12:05] VITALS: BP 160/95
--- NOTE | 2016-09-22 12:53 | NUR ---
CM REASSESSMENT NOTE: PATIENT IS DISCHARGING HOME TODAY. NO NEEDS FOR D/C. IS DRIVING HIM HOME.
[2016-09-22 13:16] LABS: FUNGUS STAIN Final report (())
--- NOTE | 2016-09-22 15:30 | NUR ---
IV REMOVED CATH INTACT. PT DISCHARGED VIA WHEELCHAIR WITH FAMILY MEMBER.
[2016-09-23 15:24] LABS: BRUCELLA ANTIBODY IGG Negative (Negative); BRUCELLA ANTIBODY IGM Negative (Negative); SPOTTED FEVER GROUP IGG <1:64 (Neg:<1:64); SPOTTED FEVER GROUP IGM <1:64 (Neg:<1:64); TYPHUS FEVER GROUP IGG <1:64 (Neg:<1:64); TYPHUS FEVER GROUP IGM <1:64 (Neg:<1:64)
== END 2016-09-22 16:01 | disposition home or self-care (01) | DRG 868 ==
LOC: D.ER 15:47 → D.ICU 18:05 → D.ER 18:05 → D.MS 19:20 → D.ICU 19:20 → D.MS 09-20 16:30
PROVIDERS: Emergency Medicine; Family Medicine; General Practice; Internal Medicine Gastroenterology; Specialist; ADMIT Family Medicine
PROC: 0DB68ZX Excision of Stomach, Via Natural or Artificial Opening Endoscopic, Diagnostic (ICD-10-PCS; principal; 2016-09-14 15:00)
PROC: 0DBL8ZZ Excision of Transverse Colon, Via Natural or Artificial Opening Endoscopic (ICD-10-PCS; 2016-09-15)
DX: A21.9 Tularemia, unspecified (principal); E87.1 Hypo-osmolality and hyponatremia; K21.0 Gastro-esophageal reflux disease with esophagitis; K44.9 Diaphragmatic hernia without obstruction or gangrene; Z87.891 Personal history of nicotine dependence; F10.20 Alcohol dependence, uncomplicated; K76.0 Fatty (change of) liver, not elsewhere classified; D64.9 Anemia, unspecified; R19.5 Other fecal abnormalities; K29.40 Chronic atrophic gastritis without bleeding; E87.6 Hypokalemia; R51 Headache; R50.9 Fever, unspecified; D12.3 Benign neoplasm of transverse colon; K64.3 Fourth degree hemorrhoids; K57.90 Diverticulosis of intestine, part unspecified, without perforation or abscess without bleeding

== ENCOUNTER 2018-09-24 01:54 | Emergency (ER) | payer SELFPAY ==
[~2018-09-24] VITALS: Ht 165.1 cm; Wt 77.3 kg
[~2018-09-24 01:54] MED LIST: ANUSOL-HC25 MG RC; CARAFATE1 G/10 ML PO; FLORAJEN3 CAPS460 MG PO; FOLIC ACID1 MG PO; K-DUR20 MEQ PO; LOMOTIL TABLET1 TAB PO; VIBRAMYCIN 100100 MG PO; VITAMIN B-1100 M1 PO; ZOFRAN ODT4 MG/UDTAB SL
[2018-09-24 01:57] VITALS: Ht 165.1 cm; Wt 77.3 kg
[2018-09-24] MEDS ORDERED: NEXIUM40 MG PO (02:00)
[2018-09-24] MEDS ORDERED: PEPTO-BISM525 MG/15 PO (02:00)
[2018-09-24 02:15] LABS: HEMATOCRIT 31.6 % (42.0-54.0); HEMOGLOBIN 10.6 g/dL (13.5-17.5); MCH 25.7 pg (26.0-34.0); MCHC 33.5 g/dL (31.0-37.0); MCV 76.5 fL (80.0-100.0); MEAN PLATELET VOLUME 8.2 fL (7.4-10.4); RBC 4.13 10x6/uL (4.20-6.10); RDW 20.2 % (11.5-14.5); WBC 5.5 10x3/uL (4.8-10.8)
[2018-09-24 02:18] LABS: PLATELET COUNT 304 10x3/uL (130-400)
[2018-09-24 02:28] LABS: ALBUMIN 3.6 g/dL (3.4-5.0); ALKALINE PHOSPHATASE 65 U/L (46-116); ALT (SGPT) 75 U/L (10-68); BILIRUBIN - TOTAL 0.43 mg/dL (0.2-1.3); CALC OSMOLALITY 264 mosm/kg (275-300); CALCIUM 8.7 mg/dL (8.5-10.1); CARBON DIOXIDE 23.9 mmol/L (21.0-32.0); CHLORIDE - SERUM 98 mmol/L (98-107); CREATININE - SERUM 0.9 mg/dL (0.6-1.3); GLUCOSE 102 mg/dL (74-106); POTASSIUM - SERUM 3.5 mmol/L (3.5-5.1); SODIUM 133 mmol/L (136-145); UREA NITROGEN 9 mg/dL (7-18); eGFR NON AFRICAN AMERICAN > 90 mL/min (90-120)
[2018-09-24 02:32] LABS: AMYLASE - SERUM 99 U/L (25-115); LIPASE 279 U/L (73-393)
[2018-09-24 02:33] LABS: TROPONIN-I < 0.017 ng/mL (0.000-0.060)
[2018-09-24 02:43] LABS: APTT 29.4 SECONDS (22.8-39.4); PROTIME 12.7 SECONDS (11.6-15.0)
[2018-09-24 02:54] LABS: EOSINOPHILS 5 % (0-7); LYMPHOCYTES 32 % (15-50); MONOCYTES 19 % (2-11); NEUTROPHILS 44 % (40-80)
[2018-09-24 02:55] LABS: PLATELET ESTIMATE NORMAL
[2018-09-24 03:57] LABS: APPEARANCE CLEAR (CLEAR); BILIRUBIN NEGATIVE (NEGATIVE); COLOR YELLOW (YELLOW); GLUCOSE NEGATIVE (NEGATIVE); KETONE NEGATIVE (NEGATIVE); NITRITE NEGATIVE (NEGATIVE); PROTEIN NEGATIVE (NEGATIVE); SPECIFIC GRAVITY 1.005 (1.005-1.020); UROBILINOGEN NORMAL (NORMAL)
[2018-09-24] MEDS ORDERED: FERROUS GLUCON324 MG PO (04:34)
[2018-09-24] MEDS ORDERED: CIPRO500 MG PO (04:34)
[2018-09-24 04:47] LABS: % SATURATION 2 % (15-55); IRON 8 ug/dl (35-150); TOTAL IRON BIND CAPACITY 377 ug/dl (260-445); UNSAT IRON BIND CAPACITY 369 ug/dl (150-375)
[2018-09-24 05:04] VITALS: BP 172/88
== END 2018-09-24 05:04 | disposition home or self-care (01) ==
LOC: D.ER 01:54
PROVIDERS: Emergency Medicine
DX: D64.9 Anemia, unspecified (principal); A04.9 Bacterial intestinal infection, unspecified